=== PATIENT | male | born 1955 | race Caucasian/White ===

== ENCOUNTER 2020-01-30 08:42 | Inpatient (IN) | payer OTHER ==
[~2020-01-30] VITALS: Ht 177.8 cm; Wt 114.0 kg
[2020-01-30] MEDS ORDERED: VENL25 PO (09:22)
[2020-01-30] MEDS ORDERED: TAMS.4ER PO (09:22)
[2020-01-30] MEDS ORDERED: CIPR500 PO (09:23)
[2020-01-30 10:08] LABS: BASOPHILS ABSOLUTE AUTO 0.05 K/mm3 (0.00-0.23); BASOPHILS PERCENT AUTO 0 % (0-2); EOSINOPHILS ABSOLUTE AUTO 0.01 K/mm3 (0.00-0.68); EOSINOPHILS PERCENT AUTO 0 % (0-6); Hematocrit 38.2 % (37.0-53.0); Hemoglobin 13.1 g/dL (13.5-17.5); IMMATURE GRAN ABSOLUTE AUTO 0.12 K/mm3 (0.00-0.10); IMMATURE GRAN PERCENT AUTO 1 % (0-1); LYMPHOCYTES PERCENT AUTO 7 % (21-46); MONOCYTES ABSOLUTE AUTO 2.34 K/mm3 (0.16-1.47); MONOCYTES PERCENT AUTO 12 % (4-13); Mean Corpuscular HGB Conc 34.3 g/dL (31.5-36.5); Mean Corpuscular Volume 87 fL (80-100); Mean Platelet Volume 9.7 fL (9.1-12.4); NEUTROPHILS ABSOLUTE AUTO 16.02 K/mm3 (1.96-9.15); NEUTROPHILS PERCENT AUTO 81 % (41-73); Platelet Count 260 K/mm3 (150-400); RDW Coefficient Variation 11.9 % (11.7-14.2); RDW Standard Deviation 38.5 fL (35.1-46.3); Red Blood Cell Count 4.37 M/mm3 (4.30-5.90); White Blood Cell Count 19.84 K/mm3 (4.00-11.30)
[2020-01-30 10:14] LABS: Source, Urine Clean Catch
[2020-01-30 10:20] LABS: Bilirubin, Urine Neg (Neg); Blood, Urine 2+ (Neg); Glucose Qualitative, Urine Neg (Neg); Ketones, Urine Neg (Neg); Leukocyte Esterase, Urine 2+ (Neg); Nitrite, Urine Neg (Neg); Protein, Urine 2+ (Neg); Specific Gravity, Urine 1.005 (1.003-1.022); Urobilinogen, Urine NORM (Normal); pH, Urine 6.5 (5.0-8.0)
[2020-01-30 10:21] LABS: Appearance, Urine Clear (Clear); Color, Urine Yellow (P-Yellow)
[2020-01-30 10:33] LABS: Bacteria Few /hpf; Squamous Epithelial Cells Rare /hpf (Few)
[2020-01-30 10:37] LABS: Albumin, Blood 3.2 g/dL (3.4-5.0); Albumin/Globulin Ratio 0.7 (0.8-1.8); Bilirubin, Total 1.3 mg/dL (0.1-1.0); Bun/Creatinine Ratio 12.8 (12.0-20.0); Calcium, Blood 8.7 mg/dL (8.5-10.1); Creatinine, Blood 1.79 mg/dL (0.60-1.20); Globulin, Blood 4.4 g/dL (2.2-4.0); Potassium, Blood 3.6 mmol/L (3.5-5.5); Total Protein, Blood 7.6 g/dL (6.4-8.2)
--- NOTE | 2020-01-30 14:14 | NUR ---
ARIVED TO UNIT: PT ARIVED TO THE UNIT AND WAS SITUATED INTO PCU BED BY THE PCT'S. PCT REPORTS PT HAS A TEMP OF >101. UPON ENTERING THE ROOM PT IS NOTED TO BE COVERED HEAD TO TOE WITH BLANKETS AND HIS COAT. PT STATES THAT HE IS FREEZING AND HURTS. PT APPEARS TO BE A/O X 4 BUT APPEARS TO HAVE FULL BODY SHAKES, TEMP IN THE ROOM IS TURNED UP SLIGHTLY TO HELP PT SLOW ON HIS WHOLE BODY SHAKES. HOSPITALIST LOTTIE WAS ATTEMPTED TO BE CALLED, BUT WAS UNABLE TO REACH THERFORE CALLED DR FIGUEROA AND RECEIVED AN ORDER FOR TYLOENL FOR FEVER. GIVEN. LOTTIE CALLED BACK INFORMED HIM OF THE SITUATION. VERAFIED TO RUN ZOSYN ALTHOUGH TIMED OUT. PT GIVEN CALL LIGHT. WILL CONTINUE TO MONITOR AND ASSESS FURTHER. PT REQUEST FOR A STREIGHT CATH AT THIS TIME. CLAYTON Farr RN TO PERFORM STREIGHT CATH.
--- NOTE | 2020-01-30 17:23 | NUR ---
ROBERT: CALL TO DR FIGUEROA. ORDER TO KEEP CATH IN D/T PT REQUEST
--- NOTE | 2020-01-30 19:20 | NUR ---
ASSUMED CARE BEDSIDE REPORT RECIEVED. PT IS AWAKE, ALERT, AND ORIENTED. PT DENIES PAIN OR DISCOMFORT. VITAL SIGNS STABLE. PT ON ROOM AIR. PT INDEPENDENT IN ROOM. LR INFUSING AT 125 ML/HR. JONES IN PLACE WITH YELLOW OUTPUT NOTED. NO FAMILY AT BEDSIDE. WILL CONTINUE TO MONITOR.
[2020-01-31 04:38] LABS: BASOPHILS ABSOLUTE AUTO 0.03 K/mm3 (0.00-0.23); BASOPHILS PERCENT AUTO 0 % (0-2); EOSINOPHILS ABSOLUTE AUTO 0.03 K/mm3 (0.00-0.68); EOSINOPHILS PERCENT AUTO 0 % (0-6); Hematocrit 32.8 % (37.0-53.0); Hemoglobin 11.1 g/dL (13.5-17.5); IMMATURE GRAN ABSOLUTE AUTO 0.05 K/mm3 (0.00-0.10); IMMATURE GRAN PERCENT AUTO 0 % (0-1); LYMPHOCYTES ABSOLUTE AUTO 1.57 K/mm3 (0.84-5.20); LYMPHOCYTES PERCENT AUTO 11 % (21-46); MONOCYTES ABSOLUTE AUTO 1.07 K/mm3 (0.16-1.47); MONOCYTES PERCENT AUTO 8 % (4-13); Mean Corpuscular HGB 30.3 pg (26.0-34.0); Mean Corpuscular HGB Conc 33.8 g/dL (31.5-36.5); Mean Platelet Volume 10.3 fL (9.1-12.4); NEUTROPHILS ABSOLUTE AUTO 11.51 K/mm3 (1.96-9.15); NEUTROPHILS PERCENT AUTO 81 % (41-73); Platelet Count 230 K/mm3 (150-400); RDW Coefficient Variation 12.1 % (11.7-14.2); RDW Standard Deviation 39.5 fL (35.1-46.3); Red Blood Cell Count 3.66 M/mm3 (4.30-5.90); White Blood Cell Count 14.26 K/mm3 (4.00-11.30)
[2020-01-31 04:39] LABS: Mean Corpuscular Volume 90 fL (80-100)
[2020-01-31 05:01] LABS: Alanine Aminotransfer (ALT/SGP 19 U/L (12-78); Albumin, Blood 2.6 g/dL (3.4-5.0); Albumin/Globulin Ratio 0.7 (0.8-1.8); Alk Phos 53 U/L (50-136); Anion Gap 6 mmol/L (6-16); Aspartate Aminotrans (AST/SGOT 7 U/L (12-37); Bilirubin, Total 0.9 mg/dL (0.1-1.0); Blood Urea Nitrogen 24 mg/dL (8-24); CO2, Blood 26 mmol/L (21-32); Chloride, Blood 105 mmol/L (98-108); Creatinine, Blood 1.71 mg/dL (0.60-1.20); Globulin, Blood 3.7 g/dL (2.2-4.0); Glomerular Filtration Rate 43 (60-); Glucose, Blood 170 mg/dL (70-99); Magnesium, Blood 1.9 mg/dL (1.6-2.4); Potassium, Blood 3.4 mmol/L (3.5-5.5); Sodium, Blood 137 mmol/L (136-145); Total Protein, Blood 6.3 g/dL (6.4-8.2); Vancomycin, Random 8.5 ug/mL
--- NOTE | 2020-01-31 05:16 | NUR ---
SHIFT SUMMARY NO ACUTE CHANGES THIS SHIFT. PT HAS SLEPT OFF AND ON THROUGHOUT THE NIGHT. WHEN AWAKE PT IS ALERT AND ORIENTED. PT HAS DENIED PAIN OR DISCOMFORT. VITAL SIGNS STABLE. PT USING CPAP WHEN SLEEPING. PT AMBULATED HALLWAYS WITHOUT DIFFICULTY THIS AM. LR INFUSING AT 125 ML/HR. JONES REMAINS IN PLACE WITH YELLOW OUTPUT NOTED. WILL CONTINUE TO MONITOR AND REPORT OFF TO ONCOMING RN.
--- NOTE | 2020-01-31 07:24 | NUR ---
ASSUMED PATIENT CARE. PATIENT RESTING COMFORTABLY IN BED, NO SIGNS OF ACUTE DISTRESS. WCTM.
--- NOTE | 2020-01-31 11:47 | NUR ---
REPORT GIVEN TO HALLEY ODONNELL IN SURGICAL.
--- NOTE | 2020-01-31 18:20 | NUR ---
SHIFT SUMMARY: PT TRANSFERED FROM PCU THIS SHIFT. VANCO INFUSING UPON ARRIVAL. PT VOIDING INDEPENDENTLY. BLADDER SCANNED TWICE THIS SHIFT. PT REPORTS SELF CATHING TWICE A DAY AND IS REQUESTING TO SELF CATH BEFORE BED. FLUIDS INFUSING PER EMAR. PT MERRITT REG DIET. IND IN ROOM. AMBULATING IN HALLWAY.
[2020-02-01 05:11] LABS: BASOPHILS ABSOLUTE AUTO 0.03 K/mm3 (0.00-0.23); BASOPHILS PERCENT AUTO 0 % (0-2); EOSINOPHILS ABSOLUTE AUTO 0.14 K/mm3 (0.00-0.68); EOSINOPHILS PERCENT AUTO 2 % (0-6); Hematocrit 38.7 % (37.0-53.0); Hemoglobin 12.6 g/dL (13.5-17.5); IMMATURE GRAN ABSOLUTE AUTO 0.03 K/mm3 (0.00-0.10); IMMATURE GRAN PERCENT AUTO 0 % (0-1); LYMPHOCYTES ABSOLUTE AUTO 2.08 K/mm3 (0.84-5.20); LYMPHOCYTES PERCENT AUTO 24 % (21-46); MONOCYTES ABSOLUTE AUTO 0.58 K/mm3 (0.16-1.47); MONOCYTES PERCENT AUTO 7 % (4-13); Mean Corpuscular HGB 30.1 pg (26.0-34.0); Mean Corpuscular HGB Conc 32.6 g/dL (31.5-36.5); Mean Platelet Volume 10.3 fL (9.1-12.4); NEUTROPHILS ABSOLUTE AUTO 5.79 K/mm3 (1.96-9.15); NEUTROPHILS PERCENT AUTO 67 % (41-73); Platelet Count 317 K/mm3 (150-400); RDW Coefficient Variation 12.3 % (11.7-14.2); RDW Standard Deviation 41.6 fL (35.1-46.3); Red Blood Cell Count 4.18 M/mm3 (4.30-5.90); White Blood Cell Count 8.65 K/mm3 (4.00-11.30)
[2020-02-01 05:21] LABS: Mean Corpuscular Volume 93 fL (80-100)
--- NOTE | 2020-02-01 05:29 | NUR ---
SHIFT SUMMARY: LINDA IS A&O, VSS. NO ACUTE EVENTS OVERNIGHT. TOLERATING PO INTAKE WELL. HE HAS STRAIGHT CATHED TWICE THIS SHIFT. HE DOES VOID BUT IS UNABLE TO FULLY EMPTY HIS BLADDER. APPROPRIATE CLEANSING PRIOR TO STRAIGHT CATH TAUGHT. HE IS INDEPENDENT IN THE ROOM. HE REPORTS APAP EFFECTIVE FOR HIS HEADACHE. HE SLEPT INTERMITTENTLY DURING THE MORNING. HE DID USE HIS CPAP WHILE SLEEPING. HE IS ABLE TO MAKE HIS NEEDS KNOWN. HE IS LYING IN BED WITH HIS CALL LIGHT IN REACH.
[2020-02-01 05:38] LABS: Bun/Creatinine Ratio 15.7 (12.0-20.0); Calcium, Blood 8.7 mg/dL (8.5-10.1); Creatinine, Blood 1.34 mg/dL (0.60-1.20); Potassium, Blood 3.7 mmol/L (3.5-5.5)
[2020-02-01] MEDS ORDERED: BACTRIM DS TAB1 EACH PO (09:59)
--- NOTE | 2020-02-01 11:13 | NUR ---
DISCHARGE IV ABX COMPLETED. IV LINES DC'D. PT EXCITED FOR DC. MED[facility]ED TO [facility]. PT UNDERSTANDS IMPORTANCE OF ABX. PLEASANT AND COOPERATIVE.
--- NOTE | 2020-02-01 11:50 | NUR ---
DISCHARGE PT AMBULATES OUT WITHOUT DIFF. DENIES FIRTHER NEEDS OR QUESTIONS.
== END 2020-02-01 11:50 | disposition home or self-care (01) | DRG 872 ==
LOC: ER 08:42 → PCU 12:25 → SURS 01-31 11:53
PROVIDERS: Emergency Medicine; Hospitalist; Nurse Practitioner Acute Care; ADMIT Family Medicine
DX: A41.2 Sepsis due to unspecified staphylococcus (principal); N12 Tubulo-interstitial nephritis, not specified as acute or chronic; N20.2 Calculus of kidney with calculus of ureter; N18.3 Chronic kidney disease, stage 3 (moderate); F32.9 Major depressive disorder, single episode, unspecified; Z87.442 Personal history of urinary calculi; D50.9 Iron deficiency anemia, unspecified; F41.9 Anxiety disorder, unspecified; N32.3 Diverticulum of bladder
CPT/HCPCS: 36415; 51701; 51702; 71045; 76770; 80048; 80053; 80202; 81001; 83605; 83735; 84145; 85025; 87040; 87077; 87086; 87186; 94660; 96365; 99284-25; A9270; J0696; J2543; J3370; J3480; J7030; J7050; J7120

== ENCOUNTER 2024-07-16 09:23 | Day surgery (SDC) | payer OTHER ==
[~2024-07-16] VITALS: Ht 177.8 cm; Wt 118.3 kg
[~2024-07-16 09:23] MED LIST: BACTRIM DS TAB1 EACH PO; CIPR500 PO; Lactated Ringer's 1,000 ML IV ONE; TAMS.4ER PO; VENL25 PO
[2024-07-16] MEDS ORDERED: FISH OIL (09:41)
[2024-07-16] MEDS ORDERED: ASPIR 8181 M1 PO (09:41)
[2024-07-16] MEDS ORDERED: ATOR10 PO (09:42)
--- NOTE | 2024-07-16 09:43 | NUR ---
07/16/24 0943 Beth Estrada HEALING ABRASION ON RIGHT PINKY
[2024-07-16] MEDS ORDERED: Lactated Ringer's 1,000 ML IV ONE (09:47)
[2024-07-16] MEDS ORDERED: Lidocaine 1%-Epineph 1:100000 20 ML MDV INJ ONE (09:59)
[2024-07-16] MEDS ORDERED: Sodium Bicarb 8.4% 1 MEQ/ML 50 ML Vial XX ONE (09:59)
[2024-07-16] MEDS ORDERED: Midazolam HCl 1MG / ML 2ML Vial ONE (10:17)
[2024-07-16 10:40] VITALS: BP 116/79
== END 2024-07-16 11:05 | disposition home or self-care (01) ==
LOC: ORSCSDS 09:23
PROVIDERS: Orthopaedic Surgery
PROC: 01N54ZZ Release Median Nerve, Percutaneous Endoscopic Approach (ICD-10-PCS; principal; 2024-07-16 12:00)
DX: G56.03 Carpal tunnel syndrome, bilateral upper limbs (principal); E66.9 Obesity, unspecified; Z68.37 Body mass index [BMI] 37.0-37.9, adult; Z79.82 Long term (current) use of aspirin; Z79.899 Other long term (current) drug therapy
CPT/HCPCS: J2250; J7120

== ENCOUNTER 2024-09-14 07:14 | Day surgery (SDC) | payer OTHER ==
[~2024-09-14] VITALS: Ht 177.8 cm; Wt 109.0 kg
[~2024-09-14 07:14] MED LIST changes: +ASPIR 8181 M1 PO; +ATOR10 PO; +FISH OIL
[2024-09-14] MEDS ORDERED: Lactated Ringer's 1,000 ML IV ONE (08:23)
--- NOTE | 2024-09-14 08:46 | NUR ---
09/14/24 0846 Colleen Castro 0843: TIMEOUT FOR PRE-OP INJECTION 0844: DR LOPES COMPLETED PRE-OP INJECTION OF 10 CC OF MIX OF 9 CC 1% LIDOCAINE WITH EPI 1:100,000 WITH 1 CC OF SODIUM BICARBONATE
[2024-09-14] MEDS ORDERED: Midazolam HCl 1MG / ML 2ML Vial ONE (09:06)
[2024-09-14 09:23] VITALS: BP 113/63
== END 2024-09-14 09:55 | disposition home or self-care (01) ==
LOC: ORSCSDS 07:14
PROVIDERS: Orthopaedic Surgery
PROC: 01N54ZZ Release Median Nerve, Percutaneous Endoscopic Approach (ICD-10-PCS; principal; 2024-09-14 09:00)
DX: G56.02 Carpal tunnel syndrome, left upper limb (principal); E78.5 Hyperlipidemia, unspecified; F32.A Depression, unspecified; G47.33 Obstructive sleep apnea (adult) (pediatric); N40.0 Benign prostatic hyperplasia without lower urinary tract symptoms; E66.9 Obesity, unspecified; Z68.34 Body mass index [BMI] 34.0-34.9, adult; Z79.82 Long term (current) use of aspirin; Z79.899 Other long term (current) drug therapy
CPT/HCPCS: J2250; J7120